=== PATIENT | male | born 1970 | race Caucasian/White ===

== ENCOUNTER 2018-04-28 07:49 | Emergency (ER) | payer SELFPAY ==
[~2018-04-28] VITALS: Ht 188 cm; Wt 104.3 kg
[2018-04-28 09:01] VITALS: BP 121/81
[2018-04-28] MEDS ORDERED: diphenhdrAMINE HCL 25 MG CAP PO ONE (09:15)
[2018-04-28] MEDS ORDERED: methylPREDNISolone SOD SUCC 125 MG/2 ML VL IM ONE (09:15)
== END 2018-04-28 09:46 | disposition home or self-care (01) ==
LOC: ER 07:49
DX: R21 Rash and other nonspecific skin eruption (principal); Z90.89 Acquired absence of other organs